=== PATIENT | female | born 1950 | race Caucasian/White ===

== ENCOUNTER 2022-02-17 22:17 | Observation (INO) | payer MEDICARE, MEDICAID, SELFPAY ==
--- NOTE | ~2022-02-17 | MR_ITS ---
EXAMINATION: MRA brain wo con DATE: 02/18/2022 12:27 INDICATION: Dizziness. Right-sided headache. TECHNIQUE: Magnetic resonance angiography (MRA) of the brain was performed without intravenous contra st with T1-weighted SPGR by the 3D [id number] technique. Maximum intensity projection 3D-reconstr uctions were obtained. COMPARISON: Head CT 02/18/2022 FINDINGS: Left vertebral artery is dominant. There is no significant stenosis of basilar artery or the posterio r cerebral arteries. There is no significant stenosis of the intracranial internal carotid arteries o r anterior or middle cerebral arteries. Anterior communicating artery is normal. The posterior commun icating arteries are normal. There is no aneurysm. IMPRESSION: 1. Normal MRI. Reviewed, dictated and finalized at location B. IMPRESSION: 1. Normal MRI.
--- NOTE | ~2022-02-17 | MR_ITS ---
EXAMINATION: MRA neck wo con DATE: 02/18/2022 12:28 INDICATION: Dizziness. TECHNIQUE: Magnetic resonance angiography (MRA) of the neck was performed without intravenous contras t. COMPARISON: None. FINDINGS: There is thrombosis of right vertebral artery. There is plaque in the proximal internal carotid arter ies. There is 0% stenosis of the proximal right internal carotid artery relative to normal distal art alfredo lumen diameter (NASCET criteria). There is 0% stenosis of the proximal left internal carotid art alfredo relative to normal distal artery lumen diameter. IMPRESSION: 1. Thrombosis of right vertebral artery. 2. 0% stenosis of the proximal internal carotid arteries relative to normal distal artery lumen diame ters (NASCET criteria). Reviewed, dictated and finalized at location B. IMPRESSION: 1. Thrombosis of right vertebral artery. 2. 0% stenosis of the proximal internal carotid arteries relative to normal dis lisa artery lumen diameters (NASCET criteria).
--- NOTE | ~2022-02-17 | MR_ITS ---
EXAMINATION: MR IAC wo con DATE: 02/18/2022 12:28 INDICATION: Dizziness. Hearing loss. TECHNIQUE: Magnetic resonance imaging (MRI) of the brain and brainstem was performed without intraven ous contrast. COMPARISON: Head CT 02/18/2022 FINDINGS: There is an acute infarct in right cerebellum. There are scattered areas of nonspecific inc reased T2-weighted signal intensity in the cerebral white matter, which is within normal limits for t he patient's age. There is no intracranial hemorrhage or abnormal mass lesion. The ventricles are nor mal in size. There are likely changes of ocular lens replacement surgeries. There is a mucous retenti on cyst in right maxillary sinus. There is mucosal thickening in right frontal sinus. The internal au ditory canals and inner and middle ears are normal. The mastoid air cells are normal. IMPRESSION: 1. Acute infarct in right cerebellum. Reviewed, dictated and finalized at location B.
--- NOTE | ~2022-02-17 | CT_ITS ---
EXAMINATION: CT brain wo con DATE: 02/18/2022 01:25 INDICATION: Right-sided headache. TECHNIQUE: Computed tomography (CT) of the head was performed without intravenous contrast. The mA wa s adjusted according to patient size. Iterative reconstruction technique was employed. The dose-lengt h product was 605.33 mGy-cm. COMPARISON: None FINDINGS: There is no intracranial hemorrhage, acute infarction, or abnormal intracranial mass lesion . There are scattered areas of low attenuation in the cerebral white matter, which is within normal l imits for the patient's age. The ventricles are normal in size. There is mucosal thickening in right frontal sinus. The mastoid air cells are normal. 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 IMPRESSION: 1. Normal aging brain. Reviewed, dictated and finalized at location B. IMPRESSION: 1. Normal aging brain.
[2022-02-17 23:05] VITALS: BP 176/82; PULSE 72; RESP 18; TEMP 36.1; O2SAT 100
[2022-02-17 23:31] LABS: Basophils Percent Auto 0.3 % (0.2-1.2); Eosinophils Absolute Auto 0.1 K/mm3 (0-0.3); Eosinophils Percent Auto 0.8 % (0-4.4); Hematocrit 37.7 % (37.0-47.0); Hemoglobin 12.8 g/dL (12.0-15.0); Immature Granulocyte Absolute 0.06 K/mm3 (0.00-0.031); Immature Granulocyte Percent A 0.6 % (0-0.5); Lymphocytes Absolute Auto 1.47 K/mm3 (0.9-3.2); Lymphocytes Percent Auto 14.5 % (18.3-44.2); Mean Corpuscular Hemoglobin 31.1 pg (26-34); Mean Corpuscular Volume 91.5 fl (80-100); Mean Platelet Volume 11.1 fl (7.4-10.4); Monocytes Absolute Auto 0.5 K/mm3 (0.1-0.6); Neutrophils Percent Auto 78.8 % (45.5-73.1); Platelet Count Result 181 k/mm3 (150-375); Red Blood Count 4.12 M/mm3 (4.2-5.4); Red Cell Distribution Width 12.8 % (11.5-14.5); White Blood Count 10.1 K/mm3 (4.5-10.0)
[2022-02-17 23:41] LABS: Alanine Aminotransferase 49 U/L (6-35); Albumin Level 3.5 g/dL (3.5-5.1); Alkaline Phosphatase 75 U/L (38-126); Anion Gap 8 mmol/L (8-16); Aspartate Amino Transferase 42 U/L (14-36); Bilirubin,Total 0.3 mg/dL (0.2-1.3); Blood Urea Nitrogen 20 mg/dL (7-17); Calcium 7.4 mg/dL (8.4-10.2); Carbon Dioxide 18 mmol/L (22-30); Chloride 113 mmol/L (98-107); Estimated CRCL calculation 63 ml/min; Estimated Glomerular Filt Rate > 60; Glucose 129 mg/dL (65-110); Sodium 139 mmol/L (137-145)
[2022-02-18] VITALS (29 sets, daily range): BP systolic 135–188; BP diastolic 59–101; PULSE 69–86; RESP 15–31; TEMP 36.6–37.6; O2SAT 20–99
--- NOTE | 2022-02-18 | ECHO_ITS ---
Patient Info Name: Mona Hernandez Age: 71 years : 1950 Gender: Female Ht: 64 in Wt: 152 lbs BSA: 1.78 m2 HR: 80 bpm BP: 161 / 82 mmHg Heart Rhythm: Sinus Rhythm Technical Quality: Fair Exam Date: 02/18/2022 7:44 AM Exam Location: [facility] Patient Status: Outpatient Admit Date: 02/18/2022 Staff Ordering Physician: Isatu Norman DO Assistant Bookkeeper: Laxmi Weiss RDCS Attending Provider: Isatu Norman DO Referring Physician: Ester HAWLEY; Exam Type: CA echo doppler color flow Study Info Indications - CVA Complete two-dimensional, color flow and Doppler transthoracic echocardiogram is performed. Summary 1. Complete two-dimensional, color flow and Doppler transthoracic echocardiogram is performed. 2. Normal left and right ventricular size and systolic function. 3. No significant valve disease,, mildly sclerotic aortic valve. 4. Normal sinus rhythm. 5. No likely cardioembolic source was identified. Left Ventricle Left ventricular chamber dimension is normal. Left ventricular systolic function is hyperdynamic, estimated at >70%. The left ventricular diastolic function is grade I diastolic dysfunction. Right Ventricle Right ventricular chamber dimension is normal. Left Atria Left atrial chamber dimension is normal. Right Atria Right atrial chamber dimension is normal. Aortic Valve The aortic valve is trileaflet. There is mild aortic valve sclerosis. Pulmonic Valve The pulmonic valve is not well visualized. Mitral Valve The mitral valve has normal leaflets. Tricuspid Valve The tricuspid valve leaflets are normal. Pericardium/Pleural The pericardium appears normal. Aorta The aortic root size at the sinus of Valsalva is not well visualized. Left Ventricular Outflow Tract Name Value Normal LVOT 2D LVOT Diameter 2.0 cm LVOT Doppler LVOT Peak Gradient 8 mmHg LVOT Mean Gradient 4 mmHg LVOT VTI 29 cm LVOT VTI/AV VTI Ratio 0.9 LVOT Stroke Volume 94 ml LVOT CO 6.9 l/min LVOT CI 3.9 l/min/m2 Pulmonic Valve Name Value Normal RVOT Doppler RVOT Peak Gradient 2 mmHg PV Doppler PV Peak Gradient 3 mmHg Mitral Valve Name Value Normal MV Doppler MV Decel Becker 339 cm/s2 MV PHT
--- NOTE | 2022-02-18 01:07 | ED.DIZZY ---
HPI - Dizziness General Chief Complaint: Dizziness Stated Complaint: Dizziness, H/A, R ear pain Time Seen by Provider: 02/18/22 00:43 History of Present Illness HPI Narrative: Patient is a 71-year-old female with a history of anxiety, depression presenting with vertigo and vomiting. Patient states that she first developed a right-sided headache approximately 3 days ago. It has continued to worsen and tonight she developed severe vertigo. States she was unable to walk due to the vertigo. She is also had multiple episodes of emesis. She complains that she cannot hear out of her right ear. She denies focal numbness or weakness, vision changes, speech changes, neck pain, fevers or chills. She denies chest pain, shortness of breath, abdominal pain, diarrhea, leg swelling, dysuria. Related Data Home Medications Medication Instructions Recorded Confirmed buspirone 10 mg tablet 15 mg PO DAILY 02/18/22 02/18/22 eszopiclone 2 mg tablet 2 mg PO HS PRN Sleep 02/18/22 02/18/22 lorazepam 0.5 mg tablet 0.5 mg PO DAILY PRN Anxiety 02/18/22 02/18/22 montelukast 10 mg tablet 10 mg PO DAILY 02/18/22 02/18/22 omeprazole 10 mg capsule,delayed 10 mg PO DAILY 02/18/22 02/18/22 release paroxetine HCl 10 mg tablet 10 mg PO DAILY 02/18/22 02/18/22 Allergies Allergy/AdvReac Type Severity Reaction Status Date / Time Iodinated Contrast Media Allergy Severe Anaphylaxis Verified 02/18/22 10:02 erythrosine sodium Allergy Mild Other Verified 02/18/22 00:34 Gadolinium-Containing Allergy Anaphylaxis Verified 02/18/22 11:29 Contrast Medi Review of Systems Review of Systems: All systems reviewed & are unremarkable except as noted in HPI and below PMFSH Past Medical History Medical History (Updated 02/23/22 @ 12:49 by Tatyana Garcia MD) Anxiety Depression Hx of cervical cancer 1991 - Surgery but no chemo or XRT Insomnia Lung nodule CT chest Feb 2022 showing 4 lung nodules Surgical History Surgical History (Updated 02/18/22 @ 09:19 by Lucho Jarrett MD) H/O hysterectomy with oophorectomy Vaginal approach but complicated by acute blood loss requiring explor abdominal surgery Family History Family History (Updated 02/18/22 @ 09:22 by Lucho Jarrett MD) Father Heart disease Hypertension Sibling Heart disease Diabetes mellitus Social History Social History (Updated 02/18/22 @ 09:24 by Lucho Jarrett MD) Social History: Patient smoked 1 pack per week for 3 years and quit at age 19. She also states that she used marijuana, hash, mushrooms and acid in her late teen years. No history of drug use since that time. She drinks 1 alcoholic drink every 2 months. No history of heavy alcohol use when she was younger. She lives at home with her . They have a dog. She is a full code. She nominates her to be the individual would make medical decisions for her if she is unable. Smoking status: Never smoker Alcohol intake: never Substance use: never Substance use type: does not use Spiritual care concerns: Yes (No blood products) Exam Narrative: GENERAL: Uncomfortable appearing, laying still in bed with eyes closed HEAD: Normocephalic, atraumatic. EYES: PERRLA and EOMI. ENT: Nares clear, no rhinorrhea or epistaxis. Mucous membranes moist. NECK: Supple. CHEST: Clear to auscultation. No respiratory distress. HEART: Regular rate and rhythm. No murmur heard. Normal peripheral pulses. ABDOMEN: Soft, nontender, nondistended, normal active bowel sounds. EXTREMITIES: Normal range of motion. No edema. SKIN: Warm, dry, no rash. NEURO: Alert and oriented x3. 5 out of 5 strength in all extremities, no sensory deficits, patient not cooperative with coordination testing due to severe vertigo PSYCH: Normal mood and affect. Course Course Emergency Course: Patient is a 71-year-old female presenting with headache, vertigo, vomiting. Patient is hypertensive, otherwise vitals are within normal limi
--- NOTE | 2022-02-18 01:21 | PC.NURSE ---
Patient in CT at this time.
[2022-02-18] MEDS: LORazepam INJ (*CRX) 2 MG/ML VIAL 0.5 MG IV PUSH (01:25)
[2022-02-18] MEDS: ONDANSETRON INJ 4 MG/2 ML VIAL IV PUSH (01:26)
[2022-02-18] MEDS: MORPHINE SULFATE (*CRX) 2 MG/ML INJ IV PUSH (01:26)
[2022-02-18 01:39] LABS: Prothrombin Time 12.8 Seconds (11.1-14.7)
[2022-02-18] MEDS: MECLIZINE HCL 25 MG TABLET PO (03:01)
[2022-02-18] MEDS: ASPIRIN 325 MG TABLET PO (03:01)
--- NOTE | 2022-02-18 04:07 | ECG_ITS ---
Measurements Intervals [facility] Rate: 76 P: 47 SC: 144 QRS: -22 QRSD: 93 T: 41 QT: 350 QTc: 394 Interpretive Statements SINUS RHYTHM BORDERLINE LEFT AXIS DEVIATION [QRS AXIS < -20] NONSPECIFIC T-WAVE ABNORMALITY ABNORMAL ECG NO PREVIOUS ECG AVAILABLE FOR COMPARISON Electronically Signed On 02-18-2022 9:29:39 CDT by Benito Locke M.D.
[2022-02-18] MEDS: POTASSIUM CHLORIDE INJ 40 MEQ in SODIUM CHLORIDE 0.9% IV 500 ML 130 MEQ IVPB (04:22)
[2022-02-18] MEDS: SODIUM CHLORIDE 0.9% IV 1,000 ML 125 ML IV CONT ×2 (04:22→20:43)
[2022-02-18 04:57] LABS: Add Urine Microscopic? YES; Appearance Urine Cloudy (Clear); Bacteria Urine Trace /hpf; Bilirubin Urine Negative (Negative); Blood Urine Negative (Negative); Color Urine Yellow (Yellow); Glucose Urine UA 1+ mg/dL (Negative); Ketones Urine Trace mg/dL (Negative); Leukocyte Esterase Ur Trace LEU/UL (Negative); Mucus Urine Few /lpf; Nitrate Urine Negative (Negative); Protein Urine 1+ mg/dL (Negative); Specific Grav Ur 1.028 (1.001-1.035); Squamous Epithelial Cell Urine Rare /hpf (Few); Urobilinogen Urine Negative mg/dL (<2.0); WBC Urine 21-30 /hpf
--- NOTE | 2022-02-18 05:25 | ADMGEN ---
This patient, Mona Hernandez, was admitted to IMU Room 202-01 on 02/18/22 at 0510. Patient/family oriented to hospital policies and general routines including ID bracelet, bed and alarms, visiting hours, pain management, procedures, bathroom and other care routines, personal items, smoking policy, room service/diet, and visiting hours. Information on how to activate the Rapid Response Team has been discussed. Patient/Family are encouraged to report perceived risks to care and to ask questions if they do not understand what they are told or what they should do.
--- NOTE | 2022-02-18 08:53 | PM.IMHP ---
H&P: HPI History of Present Illness Date/Time: 02/18/22 08:53 Chief Complaint: Dizziness Narrative: 71yo female with insomnia, depression and anxiety here for dizziness. Patient was in the normal state health until 3 days prior to admission when she developed right-sided headache. She had no other symptoms. She took Tylenol with minimal benefit. She was able to go about her daily activities without difficulty. Following day she felt better but still felt ?pressure? on the right side of head. Symptoms worsened over the evening hours. She was able to go to a [employer] and states that she over ate. This caused her to be up most of the evening with loose stools x4. No melena, hematochezia or mucus in the stools. No other individual get sick at the gathering. This been no recent sick contacts. She took Excedrin without much benefit. On the evening prior to admission (around 9pm), she was resting on the couch when she became ?extremely dizzy? when she sat up. She had ?vertigo? with nausea and vomiting. The room was spinning having was sideways. When she closed her eyes, spinning continued. She denies any fever, chills, dysuria, hematuria, urgency, urinary frequency, odynophagia, dysphagia, chest pain, abdominal pain, back pain or vaginal symptoms. She did have vision changes with diplopia. She also developed right-sided facial weakness but denies slurred speech. She developed right hearing loss and has a ?roaring? sound in her right ear. There has been no history of tick bites or Lyme disease. She does not have diabetes. She had shingles 10 years ago in the abdomen and back. No history of seizures or strokes. she did have palpitations during this issue but this is chronic for the patient and has had palpitations since age 20 with negative workup. Her symptoms worsened and she became sleepy but denies any loss of consciousness. She states that she was ?drifting in and out?. When she awoke EMS was at her side. On their evaluation, patient was alert and oriented x4. Her glucose was 115. She was given Zofran for the nausea and vomiting. Blood pressure was 177/107. She was brought to the emergency room for evaluation. In the emergency room, her blood pressure was 176/82 documented at 2305. Potassium is low at 3. Serum bicarb was low at 18. AST and ALT were mildly elevated. CT of the brain showed no acute findings. EKG showed nonspecific T-wave changes but otherwise normal sinus rhythm. She given lorazepam, morphine, Zofran and meclizine. She was given full aspirin. She was started on IV fluids. Potassium was replaced. She was admitted for further care. It should be mentioned the patient had a recent mammogram that was benign but imaging revealed possible lung nodules. CT of the chest performed at [facility] last week showed ?four nodules on my lung? . She has a technician helper instrument appointment on 03/27/2022 for further evaluation. Review of Systems Review of Systems: All systems reviewed & are unremarkable except as noted in HPI and below PMFSH Past Medical History Medical History (Updated 02/18/22 @ 09:39 by Lucho Jarrett MD) Anxiety Depression Hx of cervical cancer 1991 - Surgery but no chemo or XRT Insomnia Lung nodule CT chest Feb 2022 showing 4 lung nodules Surgical History Surgical History (Updated 02/18/22 @ 09:19 by Lucho Jarrett MD) H/O hysterectomy with oophorectomy Vaginal approach but complicated by acute blood loss requiring explor abdominal surgery Family History Family History (Updated 02/18/22 @ 09:22 by Lucho Jarrett MD) Father Heart disease Hypertension Sibling Heart disease Diabetes mellitus Social History Social History (Updated 02/18/22 @ 09:24 by Lucho Jarrett MD) Social History: Patient smoked 1 pack per week for 3 years and quit at age 19. She also states that she used marijuana, hash, mushrooms and acid in her late teen years. No history of drug use s
[2022-02-18] MEDS: ENOXAPARIN 40 MG/0.4 ML SYRINGE SUB-Q (10:42)
--- NOTE | 2022-02-18 10:54 | PCSTNOTE ---
Therapist attempted Bedside Swallow Eval 10:45 however patient NPO for MRI at 11:00.
--- NOTE | 2022-02-18 11:21 | PC.NURSE ---
Leaving floor to MRI with telemetry. Alert and oriented. No distress noted at this time.
[2022-02-18 11:34] LABS: Hemoglobin A1C 6.1 % (<5.7)
[2022-02-18 11:36] LABS: Alanine Aminotransferase 51 U/L (6-35); Alkaline Phosphatase 84 U/L (38-126); Anion Gap 7 mmol/L (8-16); Aspartate Amino Transferase 43 U/L (14-36); Bilirubin,Total 0.6 mg/dL (0.2-1.3); Blood Urea Nitrogen 21 mg/dL (7-17); Calcium 8.8 mg/dL (8.4-10.2); Carbon Dioxide 21 mmol/L (22-30); Chloride 108 mmol/L (98-107); Estimated CRCL calculation 63 ml/min; Estimated Glomerular Filt Rate > 60; Glucose 132 mg/dL (65-110); Magnesium 1.7 mg/dL (1.6-2.3); Potassium 4.1 mmol/L (3.4-5.0); Sodium 136 mmol/L (137-145)
[2022-02-18 12:40] LABS: Folic Acid 14.4 ng/mL (2.76->20)
--- NOTE | 2022-02-18 13:04 | PCSTNOTE ---
Please refer to the Bedside Swallow Evaluation in the EMR. Please note, silent aspiration cannot be ruled out at bedside.
--- NOTE | 2022-02-18 13:15 | PC.NURSE ---
Patient back to floor with telemetry. Denies pain at this time. Do distress noted.
--- NOTE | 2022-02-18 13:47 | PC.NURSE ---
Dr. Jarrett and Dr. Eckert made aware of MRA/MRI results.
[2022-02-18] MEDS: CEFDINIR 300 MG CAPSULE PO (13:56)
--- NOTE | 2022-02-18 15:00 | WPDNEURCNPN ---
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 - Occlusion and stenosis of unspecified vertebral artery Status: Acute Assessment and Plan: right vertebral artery thrombosis/ [place] have excepted the patient family is aware will be transferred Plan considering the symptomatology and already abnormal MRI Eli [facility] was contacted the accepted the patient all the pros and cons of the diagnosis and further problems were explained and discussed with the family Consult date: 02/18/22 HPI: Mona Hernandez is a 71 year old female Has been admitted to [facility] through the emergency room for the complaints of vertigo with vomiting and right-sided headache of 72 hours duration and last night she became vertiginous and was unable to walk due to the vertigo in addition she had multiple episodes of vomiting and she was unable to hear out of her right ear. She does have ongoing history of anxiety with depression, and has been taking BuSpar 10 mg daily lorazepam 0.5 mg at night in addition to paroxetine her 10 mg daily she is allergic to contrast media along with the sodium erythrocyte seen in the emergency room her vital signs were normal except the blood pressure being 176/82 and pulse oximetry was 100 on room air CBC revealed no leukocytosis BUN was 20 with creatinine 0.60 and blood sugar of 129 routine labs otherwise was normal though hepatic enzymes AST was 42 ALT 49 her brain MRI acute infarct in the right cerebellum with scattered areas of nonspecific increased T2 weighted signal in the cerebral white matter there was no hemorrhage or tumor. No neck MRA reveals thrombosis of the right vertebral artery. As per the further information she was in the normal state of health up until 3 days prior to the admission when she developed right-sided headache she took Tylenol with minimal benefit she was able to go about her daily activities without difficulty following day she felt better but still felt pressure on the right side of her head symptoms worsen over the even hours she was able to go to bone far she had Foner loose stools without only know or blurred without any sick contact when she was resting in her couch she became extremely dizzy when she sat up she had vertiginous episode with nausea and vomiting the room was spinning sideways when she closed her eyes the Art continued she had no associated generalized symptomatology particularly no fever but she did have some difficulties in her vision with double vision and right-sided facial weakness phone with the slurred speech Trina rule his son know her right ear she has had shingles about 10 years ago she has no history of seizures or stroke subsequently she became worse became sleepy and she was drifting in and out she received full dose of aspirin in the emergency room along with the lorazepam morphine and Zofran and meclizine Review of Systems Review of Systems: she has never a smoker never substance user All systems reviewed & are unremarkable except as noted in HPI and below PMFSH Past Medical History Medical History (Updated 02/18/22 @ 15:13 by Tee Eckert MD) Anxiety Depression Hx of cervical cancer 1991 - Surgery but no chemo or XRT Insomnia Lung nodule CT chest Feb 2022 showing 4 lung nodules Surgical History Surgical History (Updated 02/18/22 @ 09:19 by Lucho Jarrett MD) H/O hysterectomy with oophorectomy Vaginal approach but complicated by acute blood loss requiring explor abdominal surgery Family History Family History (Updated 02/18/22 @ 09:22 by Lucho Jarrett MD) Father Heart disease Hypertension Sibling Heart disease Diabetes mellitus Social History Social History (Updated 02/18/22 @ 09:24 by Lucho Jarrett MD) Social History: Patient smoked 1 pack per week for 3 years and quit at age 19. She also states that she used marijuana, hash, mushrooms and acid in her late teen years. No histor
[2022-02-18] MEDS: PARoxetine 10 MG TABLET PO (15:17)
[2022-02-18 15:19] LABS: EDCOVIDSCREEN Negative (Negative)
[2022-02-18] MEDS: ACETAMINOPHEN 325 MG TABLET 650 MG PO (17:11)
[2022-02-18] MEDS: HYDROcodone/acetaminophen (*CRX) 5-325 MG TABLET 1 TAB PO (18:52)
[2022-02-18] MEDS: busPIRone HCL 5 MG TABLET 15 MG PO (21:59)
[2022-02-18] MEDS: LORazepam (*CRX) 0.5 MG TABLET PO (21:59)
[2022-02-19] VITALS (17 sets, daily range): BP systolic 124–161; BP diastolic 55–78; PULSE 54–80; RESP 18–22; TEMP 36.6–37.1; O2SAT 95–98
[2022-02-19 05:16] LABS: LDL Cholesterol Direct 130 mg/dL
[2022-02-19 05:23] LABS: Anion Gap 11 mmol/L (8-16); Blood Urea Nitrogen 14 mg/dL (7-17); Calcium 8.8 mg/dL (8.4-10.2); Carbon Dioxide 24 mmol/L (22-30); Chloride 107 mmol/L (98-107); Cholesterol 206 mg/dL (0-200); Estimated CRCL calculation 55 ml/min; Estimated Glomerular Filt Rate > 60; Glucose 118 mg/dL (65-110); HDL Direct 38 mg/dL; Potassium 3.7 mmol/L (3.4-5.0); Sodium 142 mmol/L (137-145); Triglycerides 208 mg/dL (<150)
[2022-02-19] MEDS: ENOXAPARIN 40 MG/0.4 ML SYRINGE SUB-Q (08:01)
[2022-02-19] MEDS: PANTOPRAZOLE SOD SESQUIHYDRATE 20 MG TAB PO (08:01)
[2022-02-19] MEDS: ASPIRIN 81 MG CHEWABLE TABLET PO (08:01)
[2022-02-19] MEDS: ATORVASTATIN 40 MG TABLET PO (08:01)
[2022-02-19] MEDS: PARoxetine 10 MG TABLET PO (08:01)
--- NOTE | 2022-02-19 10:22 | PM.IMPN ---
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 - Occlusion and stenosis of unspecified vertebral artery Status: Acute (3) Facial palsy: Code(s): G51.0 - Ceron's palsy Status: Acute (4) Vertigo: Code(s): R42 - Dizziness and giddiness Status: Acute (5) Hearing loss: Code(s): H91.90 - Unspecified hearing loss, unspecified ear Status: Acute (6) Nystagmus: Code(s): H55.00 - Unspecified nystagmus Status: Acute (7) Hypokalemia: Code(s): E87.6 - Hypokalemia Status: Acute (8) Metabolic acidosis: Code(s): E87.20 - Acidosis, unspecified Status: Acute (9) Depression: Code(s): F32.A - Depression, unspecified Status: Acute (10) Anxiety: Code(s): F41.9 - Anxiety disorder, unspecified Status: Acute (11) Insomnia: Code(s): G47.00 - Insomnia, unspecified Status: Acute (12) Lung nodule: Code(s): R91.1 - Solitary pulmonary nodule Status: Acute Plan Patient was admitted to the IMU. MRI showing right cerebellar CVA and thrombosis right vertebral artery. Echo with normal EF and grade I diastolic dysfunction. Suspect she was having stuttering ischemia for the past 3 days then completed the CVA prior to admission resulting in the hearing loss, facial droop, nystagmus and dizziness. Spoke with Emi who has accepted the patient but did not feel a thrombectomy was warranted. They also recommended against starting heparin. Neurology consulted and appreciate their input. She has been started on ASA and Lipitor. Continue PT/OT. Speech therapy did not have concerns for dysphagia. A1c 6.1. No old records to review regarding her lung nodules. Subjective Date/time seen: 02/19/22 10:22 Interval history: 71yo female with insomnia, depression and anxiety here for dizziness and found to have cerebellar CVA. Patient slept well last night. She is using a walker to walk to the bathroom. Her dizziness is better overall. Still has the headache as right-sided. Still has the right hearing loss. She denies any numbness, tingling or weakness in extremities. She still has the right facial droop but no numbness to the face. Exam Narrative: AF 97.9 161/78 71 22 96% ra Gen - NARD Chest - CTA bilaterally, nml RR CV - RRR S1/S2. Telemetry showing no significant dysrhythmias Abd - Soft, NT/ND, Positive BS Ext - No pedal edema Neuro - Alert and oriented. No focal weakness. Right facial droop. Right hearing loss. Left lateral nystagmus with complaints of diplopia. Psych - Nml mood and affect. In good spirits Skin - Warm and dry Objective Data Vital Signs Vital Signs: Vital Signs - 24 hr 02/18/22 13:00 02/18/22 13:24 02/18/22 14:59 Temperature 97.8 F Pulse Rate 74 72 Respiratory Rate 18 Blood Pressure 141/68 H Pulse Oximetry 96 Oxygen Delivery Room Air 02/18/22 16:00 02/18/22 16:00 02/18/22 16:00 Temperature 98.1 F Pulse Rate 71 74 Respiratory Rate 16 Blood Pressure 157/69 H Pulse Oximetry 95 Oxygen Delivery Room Air 02/18/22 18:00 02/18/22 20:00 02/18/22 20:00 Temperature 99.7 F H Pulse Rate 80 77 74 Respiratory Rate 20 Blood Pressure 166/69 H Pulse Oximetry 98 Oxygen Delivery 02/18/22 20:00 02/18/22 22:00 02/18/22 23:40 Temperature 98.3 F Pulse Rate 74 70 86 Respiratory Rate 20 18 Blood Pressure 143/66 H Pulse Oximetry 98 96 Oxygen Delivery Room Air 02/19/22 00:00 02/19/22 00:00 02/19/22 02:00 Temperature Pulse Rate 68 68 80 Respiratory Rate 18 Blood Pressure Pulse Oximetry 96 Oxygen Delivery Room Air 02/19/22 04:00 02/19/22 04:00 02/19/22 04:00 Temperature 98.2 F Pulse Rate 69 72 72 Respiratory Rate 18 18 Blood Pressure 124/57 L Pulse Oximetry 96 96 O
[2022-02-19] MEDS: HYDROcodone/acetaminophen (*CRX) 5-325 MG TABLET 1 TAB PO ×2 (12:21→21:03)
--- NOTE | 2022-02-19 13:27 | WPDNEUROPN ---
Subjective Date/time seen: 02/19/22 13:27 Exam Narrative: remains awake alert and cooperative, has no obvious difficulties in speech, also more coherent receptive and understand family at the bedside follows instructions very well pupil round regular seizure vision full in all 4 quadrants extraocular movements are full with nystagmus face is symmetric tongue in the awake uvula in the midline palate moves symmetric motor examination reveals her to have no drift against gravity still complaining of headache all the pros and cons discussed with the family again she will benefit from the physical therapy occupational therapy and rehab patient likely stay here Objective Data Vital Signs Vital Signs: Vital Signs - 24 hr 02/18/22 14:59 02/18/22 16:00 02/18/22 16:00 Temperature 36.7 C Pulse Rate 71 74 Respiratory Rate 16 Blood Pressure 157/69 H Pulse Oximetry 95 Oxygen Delivery Room Air 02/18/22 16:00 02/18/22 18:00 02/18/22 20:00 Temperature 37.6 C H Pulse Rate 80 77 Respiratory Rate 20 Blood Pressure 166/69 H Pulse Oximetry 98 Oxygen Delivery Room Air 02/18/22 20:00 02/18/22 20:00 02/18/22 22:00 Temperature Pulse Rate 74 74 70 Respiratory Rate 20 Blood Pressure Pulse Oximetry 98 Oxygen Delivery Room Air 02/18/22 23:40 02/19/22 00:00 02/19/22 00:00 Temperature 36.8 C Pulse Rate 86 68 68 Respiratory Rate 18 18 Blood Pressure 143/66 H Pulse Oximetry 96 96 Oxygen Delivery Room Air 02/19/22 02:00 02/19/22 04:00 02/19/22 04:00 Temperature 36.8 C Pulse Rate 80 69 72 Respiratory Rate 18 Blood Pressure 124/57 L Pulse Oximetry 96 Oxygen Delivery 02/19/22 04:00 02/19/22 06:00 02/19/22 07:57 Temperature 36.6 C Pulse Rate 72 69 71 Respiratory Rate 18 22 H Blood Pressure 161/78 H Pulse Oximetry 96 96 Oxygen Delivery Room Air 02/19/22 08:25 02/19/22 08:00 02/19/22 08:00 Temperature Pulse Rate 71 Respiratory Rate Blood Pressure Pulse Oximetry Oxygen Delivery Room Air Room Air 02/19/22 10:00 02/19/22 11:49 02/19/22 12:20 Temperature 36.8 C Pulse Rate 69 69 Respiratory Rate 20 Blood Pressure 140/78 Pulse Oximetry 98 Oxygen Delivery Room Air Intake/Output Intake/Output: Intake & Output 02/16/22 02/17/22 02/18/22 02/19/22 23:59 23:59 23:59 23:59 Intake Total 1300 1000 Output Total 400 800 Balance 900 200 Meds/Results Medications: Active Medications Generic Name Dose Route Start Last Admin Trade Name Freq PRN Reason Stop Dose Admin Acetaminophen 650 mg 02/19/22 10:35 Acetaminophen 325 Mg Tablet PO Q6H PRN Pain Rated 5 or Less Hydrocodone Bitart/Acetaminophen 1 tab 02/19/22 10:35 02/19/22 12:21 Hydrocodone/Acetaminophen (*Crx) 5-325 Mg Tablet PO 1 tab Q6H PRN Administration Pain Rated 6 or Greater Aspirin 81 mg 02/19/22 08:00 02/19/22 08:01 Aspirin 81 Mg Chewable Tablet PO 81 mg DAILY@0800 JOHN Administration Atorvastatin Calcium 40 mg 02/19/22 09:00 02/19/22 08:01 Atorvastatin 40 Mg Tablet PO 40 mg DAILY JOHN Administration Buspirone HCl 15 mg 02/18/22 21:00 02/18/22 21:59 Buspirone Hcl 5 Mg Tablet PO 15 mg HS JOHN Administration Enoxaparin Sodium 40 mg 02/18/22 09:40 02/19/22 08:01 Enoxaparin 40 Mg/0.4 Ml Syringe SUB-Q 40 mg DAILY JOHN Administration Lorazepam 0.5 mg 02/18/22 21:00 02/18/22 21:59 Lorazepam (*Crx) 0.5 Mg Tablet PO 0.5 mg HS PRN Administration Anxiety Pantoprazole Sodium 20 mg 02/19/22 09:00 02/19/22 08:01 Pantoprazole Sod Sesquihydrate 20 Mg Tab PO 20 mg DAILY JOHN Administration Paroxetine HCl 10 mg 02/18/22 14:00 02/19/22 08:01 Paroxetine 10 Mg Tablet PO 10 mg DAILY JOHN Administration Perflutren Lipid Microsphere 0 ml 02/18/22 04:06 Perflutren Lipid Microspheres 1.5 Ml Vial Diluted To 10 Ml Total Volume IV PUSH 02/20/22 04:06
[2022-02-19] MEDS: LORazepam (*CRX) 0.5 MG TABLET PO (21:02)
[2022-02-19] MEDS: busPIRone HCL 5 MG TABLET 15 MG PO (21:03)
[2022-02-20] VITALS (10 sets, daily range): BP systolic 105–151; BP diastolic 57–80; PULSE 55–72; RESP 16–20; TEMP 36.5–37.2; O2SAT 95–98
[2022-02-20] MEDS: ATORVASTATIN 40 MG TABLET PO (08:18)
[2022-02-20] MEDS: PARoxetine 10 MG TABLET PO (08:18)
[2022-02-20] MEDS: ASPIRIN 81 MG CHEWABLE TABLET PO (08:18)
[2022-02-20] MEDS: ENOXAPARIN 40 MG/0.4 ML SYRINGE SUB-Q (08:19)
[2022-02-20] MEDS: PANTOPRAZOLE SOD SESQUIHYDRATE 20 MG TAB PO (08:19)
[2022-02-20] MEDS: HYDROcodone/acetaminophen (*CRX) 5-325 MG TABLET 1 TAB PO (08:28)
--- NOTE | 2022-02-20 13:18 | PM.IMPN ---
Progress Note: A&P Assessment and Plan (1) Cerebellar infarct: Code(s): I63.9 - Cerebral infarction, unspecified Status: Acute Assessment and Plan: continue aspirin Plavix. Vertebral artery thrombosis noted. Spoke with neurology recommended continued aspirin and Plavix (2) Facial palsy: Code(s): G51.0 - Ceron's palsy Status: Acute Assessment and Plan: secondary to above (3) Vertigo: Code(s): R42 - Dizziness and giddiness Status: Acute Assessment and Plan: secondary to above (4) Hearing loss: Code(s): H91.90 - Unspecified hearing loss, unspecified ear Status: Acute Assessment and Plan: secondary to above (5) Nystagmus: Code(s): H55.00 - Unspecified nystagmus Status: Acute Assessment and Plan: secondary to above (6) Hypokalemia: Code(s): E87.6 - Hypokalemia Status: Acute Assessment and Plan: monitor (7) Depression: Code(s): F32.A - Depression, unspecified Status: Acute (8) Anxiety: Code(s): F41.9 - Anxiety disorder, unspecified Status: Acute (9) Insomnia: Code(s): G47.00 - Insomnia, unspecified Status: Acute (10) Lung nodule: Code(s): R91.1 - Solitary pulmonary nodule Status: Acute Assessment and Plan: follow-up outpatient Subjective Date/time seen: 02/20/22 13:18 no new complaints Exam Narrative: Gen - NARD Chest - CTA bilaterally, nml RR CV - RRR S1/S2. Telemetry showing no significant dysrhythmias Abd - Soft, NT/ND, Positive BS Ext - No pedal edema Neuro - Alert and oriented. No focal weakness. Right facial droop. Right hearing loss. Left lateral nystagmus with complaints of diplopia. Psych - Nml mood and affect. In good spirits Skin - Warm and dry Objective Data Vital Signs Vital Signs: Vital Signs - 24 hr 02/19/22 14:00 02/19/22 15:44 02/19/22 16:00 Temperature Pulse Rate 69 59 L Respiratory Rate Blood Pressure Pulse Oximetry Oxygen Delivery Room Air 02/19/22 16:34 02/19/22 17:26 02/19/22 20:00 Temperature 98.7 F 97.9 F Pulse Rate 71 75 71 Respiratory Rate 20 18 Blood Pressure 135/55 L 138/74 Pulse Oximetry 96 95 Oxygen Delivery 02/19/22 20:00 02/19/22 20:00 02/19/22 22:00 Temperature Pulse Rate 71 71 76 Respiratory Rate 18 Blood Pressure Pulse Oximetry 95 Oxygen Delivery Room Air 02/19/22 23:56 02/20/22 00:00 02/20/22 00:00 Temperature 98.4 F Pulse Rate 54 L 61 61 Respiratory Rate 18 18 Blood Pressure 147/72 H Pulse Oximetry 98 98 Oxygen Delivery Room Air 02/19/22 21:46 02/20/22 02:00 02/20/22 04:00 Temperature Pulse Rate 61 61 Respiratory Rate Blood Pressure Pulse Oximetry 98 Oxygen Delivery Room Air 02/20/22 04:00 02/20/22 04:00 02/20/22 06:00 Temperature 97.9 F Pulse Rate 61 63 57 L Respiratory Rate 18 18 Blood Pressure 105/75 Pulse Oximetry 98 95 Oxygen Delivery Room Air 02/20/22 08:00 02/20/22 08:00 02/20/22 08:00 Temperature 97.7 F Pulse Rate 62 55 L Respiratory Rate 16 Blood Pressure 151/75 H Pulse Oximetry 96 Oxygen Delivery Room Air 02/20/22 10:00 02/20/22 12:00 02/20/22 12:00 Temperature 98.5 F Pulse Rate 64 64 Respiratory Rate 20 Blood Pressure 146/80 H Pulse Oximetry 98 Oxygen Delivery Room Air Intake/Output Intake/Output: Intake & Output 02/17/22 02/18/22 02/19/22 02/20/22 23:59 23:59 23:59 23:59 Intake Total 1300 1880 240 Output Total 400 1000 800 Balance 900 880 -560 Meds/Results Medications: Active Medications Generic Name Dose Route Start Last Admin Trade Name Freq PRN Reason Stop Dose Admin Acetaminophen 650 mg 02/19/22 10:35 Acetaminophen 325 Mg Tablet PO Q6H PRN Pain Rated 5 or Less Hydrocodone Bitart/Acetaminophen 1 tab 02/19/22 10:35 02/20/22 08:28 Hydrocodone/Acetaminophen (*
[2022-02-20] MEDS: busPIRone HCL 5 MG TABLET 15 MG PO (19:59)
[2022-02-21 07:13] LABS: Lyme Disease Ab (IgM), Blot Negative (Negative); Lyme Disease Ab(IgG), Blot Negative (Negative)
--- NOTE | 2022-03-11 11:05 | PM.DS ---
DS: Admitting Diagnosis Discharge Date 02/20/22 Admitting Diagnosis cva cerebellum DS: Discharge Diagnosis Discharge Diagnosis (1) Cerebellar infarct: Code(s): I63.9 - Cerebral infarction, unspecified Status: Acute (2) Facial palsy: Code(s): G51.0 - Ceron's palsy Status: Acute (3) Vertigo: Code(s): R42 - Dizziness and giddiness Status: Acute (4) Hearing loss: Code(s): H91.90 - Unspecified hearing loss, unspecified ear Status: Acute (5) Nystagmus: Code(s): H55.00 - Unspecified nystagmus Status: Acute (6) Hypokalemia: Code(s): E87.6 - Hypokalemia Status: Acute (7) Depression: Code(s): F32.A - Depression, unspecified Status: Acute (8) Anxiety: Code(s): F41.9 - Anxiety disorder, unspecified Status: Acute (9) Insomnia: Code(s): G47.00 - Insomnia, unspecified Status: Acute (10) Lung nodule: Code(s): R91.1 - Solitary pulmonary nodule Status: Acute DS: Summary Hospital Course Hospital Course: Admitted for dizziness. found to have a cerebellar infarct. Neurology was consulted. Patient did well enough over the couple days she is in the hospital she could be discharged home. Time Spent with Patient Time attestation: Total time spent providing and/or coordinating discharge services: Exam Narrative: General: alert and oriented Psych: appropriate mood nad affect Eyes: PERRLA Neck: Trachea midline, no new lesions Skin: no changes Lungs: CTA Cardiac: Normal S1,S2, no MGR ABD: soft, nd, nt, nbs Ext: no new lesions, no cce Vasc: Pulses intact Discharge Plan Discharge Attending physician on discharge: Jean Stephens Consulting providers: Tee Eckert ; Jean Quintana ; Benito Locke ; Lucas Guy V. Discharging Clinician: Jean Stephens Anticipated Discharge Date/Time: 02/20/22 11:03 Patient Disposition: Home, Self-Care Activity: no preference Diet: as tolerated Follow-up/Referrals: Tee Eckert MD [Physician] - Discharge Medications: No Action paroxetine HCl 10 mg tablet 10 mg PO DAILY lorazepam 0.5 mg tablet 0.5 mg PO DAILY PRN (Reason: Anxiety) buspirone 10 mg tablet 15 mg PO DAILY montelukast 10 mg tablet 10 mg PO DAILY omeprazole 10 mg Capsule,Delayed Release(Dr/Ec) 10 mg PO DAILY eszopiclone 2 mg tablet 2 mg PO HS PRN (Reason: Sleep) Date of admission: 02/18/22 04:03 Primary Care Provider: Mark,Alejandro Valverde Admitting Provider: Lucho Jarrett Attending physician on admission: Jean Stephens Condition: Stable
--- NOTE | 2022-03-21 07:38 | PM.TDS ---
Transfer Discharge Sum: Prov Provider Date of admission: 02/18/22 04:03 Primary care physician: Alejandro Flores, Admitting clinician: Shane Jarrett MD Consults: 02/18/22 04:05 Consult to Physician Routine Comment: Consulting Provider: Jessy Nam Reason for consultation: vertigo, concern for posterior stroke Has provider been notified: Yes DS: Admitting Diagnosis Discharge Date 02/20/22 Admitting Diagnosis CVA DS: Discharge Diagnosis Discharge Diagnosis (1) Cerebellar infarct: Code(s): I63.9 - Cerebral infarction, unspecified Status: Acute (2) Facial palsy: Code(s): G51.0 - Ceron's palsy Status: Acute (3) Vertigo: Code(s): R42 - Dizziness and giddiness Status: Acute (4) Hearing loss: Code(s): H91.90 - Unspecified hearing loss, unspecified ear Status: Acute (5) Nystagmus: Code(s): H55.00 - Unspecified nystagmus Status: Acute (6) Hypokalemia: Code(s): E87.6 - Hypokalemia Status: Acute (7) Depression: Code(s): F32.A - Depression, unspecified Status: Acute (8) Anxiety: Code(s): F41.9 - Anxiety disorder, unspecified Status: Acute (9) Insomnia: Code(s): G47.00 - Insomnia, unspecified Status: Acute (10) Lung nodule: Code(s): R91.1 - Solitary pulmonary nodule Status: Acute Transfer Discharge Sum: Med Medications Active and Home Medications: Home Medications buspirone 10 mg tablet 15 mg PO DAILY 02/18/22 [History Confirmed 02/18/22] eszopiclone 2 mg tablet 2 mg PO HS PRN Sleep 02/18/22 [History Confirmed 02/18/22] lorazepam 0.5 mg tablet 0.5 mg PO DAILY PRN Anxiety 02/18/22 [History Confirmed 02/18/22] montelukast 10 mg tablet 10 mg PO DAILY 02/18/22 [History Confirmed 02/18/22] omeprazole 10 mg capsule,delayed release 10 mg PO DAILY 02/18/22 [History Confirmed 02/18/22] paroxetine HCl 10 mg tablet 10 mg PO DAILY 02/18/22 [History Confirmed 02/18/22] Transfer Discharge Sum: Hosp Hospital Course Hospital course: Mona Hernandez is a 71 year old female Came in with dizziness and vertigo. She was found to have a cerebellar stroke on imaging. It was too late for intervention at that time. Neuro was consulted recommended anti-platelet therapy. She was also prescribed physical therapy and occupational therapy and she subsequently improved. Nonetheless Neurology spoke with Emi and patient was subsequent transferred to tertiary care center. She was further evaluated managed there. Time Spent with Patient Time attestation: Total time spent providing and/or coordinating transfer services: Exam Narrative: General: alert and oriented Psych: appropriate mood nad affect Eyes: PERRLA Neck: Trachea midline, no new lesions Skin: no changes Lungs: CTA Cardiac: Normal S1,S2, no MGR ABD: soft, nd, nt, nbs Ext: no new lesions, no cce Vasc: Pulses intact
== END 2022-02-20 20:30 | disposition short-term general hospital (02) ==
LOC: ANHED 02-18 00:43 → ANHIMU 02-18 05:41
PROVIDERS: Family Medicine; Admitting Provider Internal Medicine; Emergency Provider Emergency Medicine; PCP Family Medicine; Visit Provider Chiropractor
DX: I63.9 Cerebral infarction, unspecified (principal); I65.01 Occlusion and stenosis of right vertebral artery; G51.0 Bell's palsy; R42 Dizziness and giddiness; H91.90 Unspecified hearing loss, unspecified ear; H55.00 Unspecified nystagmus; H66.90 Otitis media, unspecified, unspecified ear; E87.6 Hypokalemia; E87.20 Acidosis, unspecified; F32.A Depression, unspecified; F41.9 Anxiety disorder, unspecified; G47.00 Insomnia, unspecified; R91.8 Other nonspecific abnormal finding of lung field; J34.1 Cyst and mucocele of nose and nasal sinus; Z85.41 Personal history of malignant neoplasm of cervix uteri; Z20.822 Contact with and (suspected) exposure to COVID-19; I35.8 Other nonrheumatic aortic valve disorders; Z90.710 Acquired absence of both cervix and uterus; Z90.722 Acquired absence of ovaries, bilateral; Z87.891 Personal history of nicotine dependence; F12.11 Cannabis abuse, in remission; F16.11 Hallucinogen abuse, in remission; F10.90 Alcohol use, unspecified, uncomplicated; R94.31 Abnormal electrocardiogram [ECG] [EKG]; Z79.899 Other long term (current) drug therapy
CPT/HCPCS: 36415; 70450; 70544; 70547; 70551; 80048; 80053; 80061; 81001; 82607; 82746; 83036; 83735; 85025; 85610; 85730; 86617; 87086; 87088; 87147; 87426; 92610; 93005; 93306; 96361; 96372; 96374; 96375; 97110; 97112; 97161; 97165; 97530; 97535; 99285; A9270; C9803; G0378; J1650; J2060; J2270; J2405; J3480; J7030; J7040